=== PATIENT | male | born 1945 | race Caucasian/White ===

== ENCOUNTER 2022-09-16 18:34 | Emergency (ER) | payer OTHER ==
[~2022-09-16] VITALS: Ht 177.8 cm; Wt 81.6 kg
[2022-09-16 18:54] VITALS: BP_SYST 180
--- NOTE | 2022-09-16 19:00 | NUR ---
DR. AGUAYO WITH PATIENT FOR MSE.
--- NOTE | 2022-09-16 20:20 | NUR ---
PT FRPM HOME WITH C/O OF RIGHT FOOT PAIN AFTER PT HAD MECH SLIP AND FALL. PT REPORTS HITTING HEAD, DENIES LOC AND KO. PT A&O X4.
[2022-09-16] MEDS ORDERED: HYDR-3917 PO (22:08)
[2022-09-16] MEDS ORDERED: IBUP-1969 PO (22:08)
[2022-09-16] MEDS ORDERED: HYDROcodone/ACETAMIN 5-325 MG TAB (NORCO/ VICODIN) PO ONE (22:15)
[2022-09-16] MEDS ORDERED: IBUPROFEN 800 MG TABLET PO ONE (22:15)
[2022-09-16 22:35] VITALS: BP_SYST 142
--- NOTE | 2022-09-16 22:35 | NUR ---
Patient given written and verbal discharge instructions and verbalizes understanding. ER DR. AGUAYO discussed with patient the results and treatment provided. Patient in stable condition. ID arm band removed. Rx of NORCO AND MOTRIN given. Patient educated on pain management and to follow up with PMD. Pain Scale 0. Opportunity for questions provided and answered. Medication side effect fact sheet provided.
== END 2022-09-16 22:35 | disposition home or self-care (01) ==
LOC: SED 18:34
DX: S92.241A Displaced fracture of medial cuneiform of right foot, initial encounter for closed fracture (principal); E11.9 Type 2 diabetes mellitus without complications; I10 Essential (primary) hypertension; Z88.8 Allergy status to other drugs, medicaments and biological substances; W01.0XXA Fall on same level from slipping, tripping and stumbling without subsequent striking against object, initial encounter; Y93.89 Activity, other specified; Y92.89 Other specified places as the place of occurrence of the external cause; Y99.8 Other external cause status
CPT/HCPCS: 99284